=== PATIENT | female | born 1960 | race Caucasian/White ===

== ENCOUNTER 2018-01-02 09:23 | Inpatient (IN) | payer OTHER ==
[2018-01-02 10:58] VITALS: BMI 27.3
--- NOTE | 2018-01-02 14:47 | HP ---
COWS - Scale Resting Pulse: 1= [place] 81-100 Sweatin= Chills/Flushing Restless Observation: 1= Difficult to Sit Still Pupil Size: 1= Pupils >than Normal Bone or Joint Aches: 1= Mild Discomfort Runny Nose/ Eye Tearin= Nasal Congestion GI Upset > 30mins: 2= Nausea/Diarrhea Tremor Observation: 2= Slight Tremor Visible Yawning Observation: 1= 1-2x During Session Anxiety or Irritability: 2=Irritable/Anxious Goose Flesh Skin: 3=Piloerection COWS Score: 16 CIWA Score - CIWA Score Nausea/Vomitin Muscle Tremors: 3 Anxiety: 3 Agitation: 3 Paroxysmal Sweats: 3 Orientation: 0-Oriented Tacttile Disturbances: 1-Very Mild Itch/Numbness Auditory Disturbances: 0-None Visual Disturbances: 0-None Headache: 1-Very Mild CIWA-Ar Total Score: 17 Admission ROS BHS - HPI Chief Complaint: alcohol and loxycodone withdrawal sx Allergies/Adverse Reactions: Allergies Allergy/AdvReac Type Severity Reaction Status Date / Time No Known Allergies Allergy Verified 01/02/18 14:35 History of Present Illness: 57 yo f w h/o OUD and chronic alcoholism admitted for inaptient detoxification beause of opiodi and alcohol withdrawawl sx, was in detox 12 years ago recenlty relapsed 2 months ago. PMHX chronic back pain and osteoporosis, started oxycodoen 1 year ago and developed addiction, no si at this time depression, anxiety, insomnia thirsty Exam Limitations: No Limitations - Ebola screening Have you traveled outside of the country in the last 21 days: No Have you had contact with anyone from an Ebola affected area: No Have you been sick,other than usual withdrawal symptoms: No Do you have a fever: No - Review of Systems Constitutional: Chills, Diaphoresis, Malaise, Night Sweats, Weight Stable EENT: reports: Tearing, Nose Congestion Respiratory: reports: No Symptoms reported Cardiac: reports: No Symptoms Reported GI: reports: Diarrhea, Nausea, Poor Appetite, Poor Fluid Intake, Vomiting, Indigestion, Abdominal cramping : reports: No Symptoms Reported Integumentary: reports: Flushing, Sweating Neuro: reports: Headache, Numbness, Paresthesia, Tingling, Tremors, Weakness Endocrine: reports: Increased Thirst Hematology: reports: No Symptoms Reported Psychiatric: reports: Judgement Intact, Mood/Affect Appropiate, Orientated x3, Anxious, Depressed Other Systems: Reviewed and Negative Patient History - Patient Medical History Hx Anemia: No Hx Asthma: No Hx Chronic Obstructive Pulmonary Disease (COPD): No Hx Cancer: No Hx Cardiac Disorders: No Hx Congestive Heart Failure: No Hx Hypertension: No Hx Hypercholesterolemia: No Hx Pacemaker: No HX Cerebrovascular Accident: No Hx Seizures: No Hx Dementia: No Hx Diabetes: No Hx Gastrointestinal Disorders: No Hx Liver Disease: No Hx Genitourinary Disorders: No Hx Sexually Transmitted Disorders: No Hx Renal Disease (ESRD): No Hx Thyroid Disease: No Hx Human Immunodeficiency Virus (HIV): No Hx Hepatitis C: No Hx Depression: Yes Hx Suicide Attempt: No Hx Bipolar Disorder: No Hx Schizophrenia: No - Patient Surgical History Past Surgical History: No Anesthesia Reaction: No - PPD History Previous Implant?: Yes Documented Results: Positive w/o proof Implanted On Prior [facility] Admission?: No PPD to be Administered?: No - Reproductive History Patient is a Female of Child Bearing Age (11 -55 yrs old): No Patient : No - Smoking Cessation Smoking history: Current every day smoker Have you smoked in the past 12 months: Yes Aproximately how many cigarettes per day: 10 Hx Chewing Tobacco Use: No Initiated information on smoking cessation: Yes 'Breaking Loose' booklet given: 01/02/18 - Substance & Tx. History Hx Alcohol Use: Yes Hx Substance Use: Yes Substance Use Type: Alcohol, Opiates, Prescribed Hx Substance Use Treatment: Yes - Substances Abused Alcohol Route: Oral Frequency: Daily Amount used: 1 pint of tequilla and up Age of first use: 13 Date of Last Use: 01/02/18 Oxycontin Route: Oral Frequency: Daily Amount used: 30mg daily Age of first use: 56 Date of Last Use: 01/01/18 Family Disease History - Family Disease History Family Disease History: Heart Disease: Father (throat), Mother (stomach), CA: Father, Mother, Other: Grandparent (alcoholism), Father Admission Physical Exam BHS - Vital Signs Vital Signs: Vital Signs - 24 hr 01/02/18 10:47 Temperature 98.1 F Pulse Rate 83 Respiratory 18 Rate Blood Pressure 137/86 - Physical General Appearance: Yes: Nourished, Appropriately Dressed, Disheveled, Mild Distress, Tremorous, Irritable, Sweating, Anxious HEENTM: Yes: EOMI, Hearing grossly Normal, Normocephalic, Normal Voice, PAT, Pharynx Normal, Nasal Congestion, Rhinorrhea Respiratory: Yes: Within Normal Limits, Chest Non-Tender, Lungs Clear, Normal Breath Sounds, No Respiratory Distress, No Accessory Muscle Use Neck: Yes: Within Normal Limits, No masses,lesions,Nodules, Supple, Trachea in good position Breast: Yes: Breast Exam Deferred Cardiology: Yes: Within Normal Limits, Regular Rhythm, Regular Rate, S1, S2 Abdominal: Yes: Within Normal Limits, Normal Bowel Sounds, Non Tender, Flat, Soft Genitourinary: Yes: Within Normal Limits Back: Yes: Within Normal Limits, Normal Inspection Musculoskeletal: Yes: Gait Steady, Pelvis Stable, Back pain, Joint Stiffness, Muscle Pain Extremities: Yes: Normal Capillary Refill, Normal Range of Motion, Non-Tender, Tremors Neurological: Yes: account relationship manager II-XII NML intact, Fully Oriented, Alert, Motor Strength 5/5, Normal Response, Depressed Affect Integumentary: Yes: Normal Color, Warm, Diaphoresis, Moist, Other (poor skin turgor) Lymphatic: Yes: Within Normal Limits - Addiitonal Findings: withdrawal sx - Diagnostic (1) Alcohol dependence with uncomplicated withdrawal Current Visit: Yes Status: Acute (2) Opioid dependence with withdrawal Current Visit: Yes Status: Acute (3) Dehydration Current Visit: Yes Status: Acute (4) Depression Current Visit: Yes Status: Acute (5) Nicotine dependence Current Visit: Yes Status: Acute (6) Chronic back pain greater than 3 months duration Current Visit: Yes Status: Acute Cleared for Admission [facility] - Detox or Rehab [facility] Level of Care: Medically Managed Detox Regimen/Protocol: Methadone/Librium [facility] Breath Alcohol Content Breath Alcohol Content: 0.191 Urine Pregancy Test - Result Urine Test Results: Negative- NO Line Present Urine Drug Screen - Results Drug Screen Negative: No Urine Drug Screen Results: OXY-Oxycodone
[2018-01-02] MEDS ORDERED: P-EPHED 60MG/TRIPROLIDI 2.5MG TABLET PO PRN (14:59)
[2018-01-02] MEDS ORDERED: hydrOXYzine PAMOATE 50 MG CAPSULE (FP) PO PRN (14:59)
[2018-01-02] MEDS ORDERED: guaiFENesin/D-METHORPHAN HB 10 ML UNIT-DOSE CUPS PO PRN (14:59)
[2018-01-02] MEDS ORDERED: MAG HYDROX/AL HYDROX/SIMETH 30 ML UNIT-DOSE CUP PO PRN (14:59)
[2018-01-02] MEDS ORDERED: chlordiazePOXIDE HCL 25 MG CAPSULE PO PRN (14:59)
[2018-01-02] MEDS ORDERED: LOPERAMIDE HCL 2 MG CAPSULE PO PRN (14:59)
[2018-01-02] MEDS ORDERED: ACETAMINOPHEN 325 MG TABLET (FP) PO PRN (14:59)
[2018-01-02] MEDS ORDERED: MAGNESIUM HYDROX 2400MG/30ML ORAL SUSPENSION 30 ML CUP PO PRN (14:59)
[2018-01-02] MEDS ORDERED: NICOTINE POLACRILEX 2 MG GUM BUC PRN (14:59)
[2018-01-02] MEDS ORDERED: MENTHOL/PHENOL 1 EACH UD MM PRN (14:59)
[2018-01-02] MEDS ORDERED: MAGNESIUM CITRATE 300 ML BOTTLE PO PRN (14:59)
[2018-01-02] MEDS ORDERED: METHADONE HCL 10 MG TABLET (FOR DETOX USE ONLY) PO ONE ×2 (15:15→23:00)
[2018-01-02] MEDS ORDERED: chlordiazePOXIDE HCL 25 MG CAPSULE PO ONE (15:15)
[2018-01-02] MEDS ORDERED: METHADONE HCL 10 MG TABLET (FOR DETOX USE ONLY) ONE (17:27)
[2018-01-02] MEDS: chlordiazePOXIDE HCL 25 MG CAPSULE PO SCH ×2 (17:28→22:32)
[2018-01-02] MEDS: PANTOPRAZOLE 40 MG TABLET (FP) PO SCH (17:29)
[2018-01-02] MEDS: NICOTINE 14 MG/24 HOURS TOPICAL PATCH TD SCH (17:29)
[2018-01-02] MEDS: GABAPENTIN 100 MG CAPSULE (FP) PO SCH ×2 (17:29→22:32)
[2018-01-02] MEDS: DULoxetine HCL 20 MG CAPSULE.DR (FP) PO SCH (19:45)
[2018-01-02] MEDS: LIDOCAINE 5% TOPICAL PATCH TP SCH (19:46)
[2018-01-02 20:03] LABS: URINE APPEARANCE CLEAR; URINE BILIRUBIN NEGATIVE (NEGATIVE); URINE BLOOD 1+ (NEGATIVE); URINE COLOR COLORLESS; URINE GLUCOSE (UA) NEGATIVE (NEGATIVE); URINE KETONE NEGATIVE (NEGATIVE); URINE LEUK ESTERASE TRACE (NEGATIVE); URINE NITRITE NEGATIVE (NEGATIVE); URINE PROTEIN NEGATIVE (NEGATIVE); URINE UROBILINOGEN NEGATIVE mg/dL (0.2-1.0)
[2018-01-02 20:27] LABS: EPI CELLS RARE /HPF (FEW); URINE MUCUS RARE
[2018-01-02] MEDS ORDERED: ZOLPIDEM TARTRATE 10 MG TABLET (PARK CARE ONLY) PO PRN (22:00)
[2018-01-02] MEDS: AMITRIPTYLINE HCL 25 MG TABLET (FP) PO SCH (22:32)
[2018-01-02] MEDS: NAPROXEN 500 MG TABLET (FP) PO SCH (22:32)
[2018-01-02] MEDS: THIAMINE HCL 100 MG TABLET (FP) PO SCH (22:38)
[2018-01-02] MEDS: LIDOCAINE PATCH REMOVAL MC SCH (22:39)
[2018-01-03] MEDS: GABAPENTIN 100 MG CAPSULE (FP) PO SCH ×3 (06:08→22:38)
[2018-01-03] MEDS: chlordiazePOXIDE HCL 25 MG CAPSULE PO SCH ×4 (06:08→22:38)
[2018-01-03] MEDS ORDERED: METHADONE HCL 10 MG TABLET (FOR DETOX USE ONLY) PO SCH (10:00)
--- NOTE | 2018-01-03 10:10 | CONSULT ---
[facility] Psychiatric Consult - Data Date of interview: 01/03/18 Admission source: [facility] Identifying data: This is 57 years old female, single, mother of one, living with sister, on [place], with psychiatric hospitalization history admitted for inpatient detoxification beause of opiods and alcohol, Nicotine abuse. Substance Abuse History: Smoking Cessation. Smoking history: Current every day smoker. Have you smoked in the past 12 months: Yes. Aproximately how many cigarettes per day: 10. Hx Chewing Tobacco Use: No. Initiated information on smoking cessation: Yes. 'Breaking Loose' booklet given: 01/02/18. - Substance & Tx. History. Hx Alcohol Use: Yes. Hx Substance Use: Yes. Substance Use Type : Alcohol, Opiates, Prescribed. Hx Substance Use Treatment: Yes. - Substances Abused. Alcohol. Route: Oral. Frequency: Daily. Amount used: 1 pint of tequilla and up. Age of first use: 13. Date of Last Use: 01/02/18. Oxycontin. Route: Oral. Frequency: Daily. Amount used: 30mg daily. Age of first use: 56. Date of Last Use: 01/01/18 Medical History: LBP Psychiatric History: Patient reports history of depression, reports unclear psychiatric admission on about 12 years ago for safety, denies suicidal history , reports no medications taking prior to admission Physical/Sexual Abuse/Trauma History: Denies Additional Comment: Observation. Detox Unit Care Protocol Mental Status Exam - Mental Status Exam Alert and Oriented to: Person Cognitive Function: Fair Patient Appearance: Unkempt Mood: Sad Affect: Flat Patient Behavior: Sedated, Cooperative Voice Loudness: Mildly Soft/Quiet Thought Process: Circumstantial Thought Disorder: Being Controlled Hallucinations: Denies Suicidal Ideation: Denies Homicidal Ideation: Denies Insight/Judgement: Fair Sleep: Difficulty falling asleep Appetite: Fair Muscle strength/Tone: Mild Hypotonicity Gait/Station: Shuffling Additional Comments: Observation. Detox Unit Care Protocol Psychiatric Findings - Problem List ([place] 1, 2,3) (1) Drug-induced mood disorder Current Visit: Yes Status: Acute (2) Alcohol dependence with uncomplicated withdrawal Current Visit: Yes Status: Acute (3) Nicotine dependence Current Visit: Yes Status: Acute (4) Opioid dependence with withdrawal Current Visit: Yes Status: Acute - Initial Treatment Plan Initial Treatment Plan: Observation. Detox Unit Care Protocol
[2018-01-03] MEDS: NAPROXEN 500 MG TABLET (FP) PO SCH ×2 (10:21→22:38)
[2018-01-03] MEDS: PANTOPRAZOLE 40 MG TABLET (FP) PO SCH (10:21)
[2018-01-03] MEDS: PRENATAL VITAMINS W/ FOLIC ACID TABLET (FP) PO SCH (10:21)
[2018-01-03] MEDS: NICOTINE 14 MG/24 HOURS TOPICAL PATCH TD SCH (10:21)
[2018-01-03] MEDS: DULoxetine HCL 20 MG CAPSULE.DR (FP) PO SCH (10:21)
--- NOTE | 2018-01-03 10:21 | PN ---
S CIWA - CIWA Score Nausea/Vomitin Muscle Tremors: 3 Anxiety: 3 Agitation: 3 Paroxysmal Sweats: 3 Orientation: 0-Oriented Tacttile Disturbances: 0-None Auditory Disturbances: 0-None Visual Disturbances: 0-None Headache: 0-None Present CIWA-Ar Total Score: 15 BHS COWS - Scale Resting Pulse: 1= [place] 81-100 Sweatin= Chills/Flushing Restless Observation: 1= Difficult to Sit Still Pupil Size: 1= Pupils >than Normal Bone or Joint Aches: 1= Mild Discomfort Runny Nose/ Eye Tearin= Nasal Congestion GI Upset > 30mins: 1= Stomach Cramp Tremor Observation of Outstretched Hands: 1= Tremor [place], Not Seen Yawning Observation: 1= 1-2x During Session Anxiety or Irritability: 2=Irritable/Anxious Goose Flesh Skin: 3=Piloerection COWS Score: 14 S Progress Note (SOAP) Subjective: nausea, sweats, interrupted sleep, anxiety, tremors Objective: 01/03/18 10:21 Vital Signs - 24 hr 01/02/18 01/02/18 01/02/18 10:47 18:09 22:54 Temperature 98.1 F 98.2 F 98.2 F Pulse Rate 83 82 82 Respiratory 18 18 18 Rate Blood Pressure 137/86 128/77 128/77 01/03/18 01/03/18 01/03/18 00:01 00:30 00:31 Temperature Pulse Rate 88 80 Respiratory 18 18 18 Rate Blood Pressure 01/03/18 01/03/18 01:01 06:00 Temperature 97.9 F Pulse Rate 73 71 Respiratory 18 18 Rate Blood Pressure 124/57 Laboratory Tests 01/02/18 18:15 Urine Color Colorless Urine Appearance Clear Urine pH 5.0 Ur Specific [place] 1.004 Urine Protein Negative Urine Glucose (UA) Negative Urine Ketones Negative Urine Blood 1+ H Urine Nitrite Negative Urine Bilirubin Negative Urine Urobilinogen Negative Ur Leukocyte Esterase Trace Urine WBC (Auto) 5 Urine RBC (Auto) None Ur Epithelial Cells Rare Urine Mucus Rare labs still pending Assessment: 01/03/18 10:21 withdrawl sx cont detox, fluids, encourage ambulation
[2018-01-03] MEDS: LIDOCAINE 5% TOPICAL PATCH TP SCH (10:23)
[2018-01-03 10:44] LABS: HEMATOCRIT 42.8 % (32.4-45.2); HEMOGLOBIN 13.9 GM/dL (10.7-15.3); MCH 32.9 pg (25.7-33.7); MCHC 32.4 g/dl (32.0-36.0); MEAN CELL VOLUME 101.4 fl (80-96); MEAN PLT VOLUME 8.1 fl (7.5-11.1); PLATELET COUNT 233 K/MM3 (134-434); RBC 4.22 M/mm3 (3.60-5.2); RDW 15.5 % (11.6-15.6); WHITE BLOOD COUNT 9.9 K/mm3 (4.0-10.0)
[2018-01-03 11:04] LABS: ALBUMIN 3.8 g/dl (3.4-5.0); ANION GAP 12 (8-16); BLOOD UREA NITROGEN 11 mg/dL (7-18); CALCIUM 8.4 mg/dL (8.5-10.1); CHLORIDE 101 mmol/L (98-107); CO2 24 mmol/L (21-32); GLUCOSE,RANDOM 125 mg/dL (74-106); SODIUM 137 mmol/L (136-145)
[2018-01-03 11:08] LABS: ALK PHOS 114 U/L (45-117); BILIRUBIN,TOTAL 0.4 mg/dL (0.2-1.0); CREATININE 0.5 mg/dL (0.55-1.02); SGOT/AST 36 U/L (15-37); SGPT/ALT 43 U/L (12-78); TOT PROT 7.3 g/dl (6.4-8.2)
[2018-01-03 11:45] LABS: SICKLE CELL SCREEN NEGATIVE (NEGATIVE)
[2018-01-03] MEDS ORDERED: FLU VACCINE QUAD 60 MCG/0.5 ML (MDV 17-18) IM ONE (12:00)
--- NOTE | 2018-01-03 17:14 | EKG ---
Test Reason : Blood Pressure : / mmHG Vent. Rate : 079 BPM Atrial Rate : 079 BPM P-R Int : 148 ms QRS Dur : 082 ms QT Int : 396 ms P-R-T Axes : 059 050 063 degrees QTc Int : 454 ms NORMAL SINUS RHYTHM POSSIBLE LEFT ATRIAL ENLARGEMENT BORDERLINE ECG NO PREVIOUS ECGS AVAILABLE Confirmed by PAULA DUMONT, ANASTASIYA ([id number]) on 01/03/2018 5:13:51 PM Referred By: Confirmed By:ANASTASIYA MITCHELL MD
[2018-01-03] MEDS: AMITRIPTYLINE HCL 25 MG TABLET (FP) PO SCH (22:38)
[2018-01-03] MEDS: THIAMINE HCL 100 MG TABLET (FP) PO SCH (22:38)
[2018-01-03] MEDS: LIDOCAINE PATCH REMOVAL MC SCH (23:06)
[2018-01-04] MEDS: GABAPENTIN 100 MG CAPSULE (FP) PO SCH ×3 (07:02→22:21)
[2018-01-04] MEDS: chlordiazePOXIDE HCL 25 MG CAPSULE PO SCH ×2 (07:04→10:55)
[2018-01-04] MEDS ORDERED: ONDANSETRON *ODT* 4 MG TABLET SL PRN (10:09)
[2018-01-04] MEDS: METHADONE HCL 5 MG TABLET (FOR DETOX USE ONLY) PO SCH (10:55)
[2018-01-04] MEDS: LIDOCAINE 5% TOPICAL PATCH TP SCH (10:55)
[2018-01-04] MEDS: NAPROXEN 500 MG TABLET (FP) PO SCH ×2 (10:55→22:21)
[2018-01-04] MEDS: PRENATAL VITAMINS W/ FOLIC ACID TABLET (FP) PO SCH (10:55)
[2018-01-04] MEDS: NICOTINE 14 MG/24 HOURS TOPICAL PATCH TD SCH (10:55)
[2018-01-04] MEDS: PANTOPRAZOLE 40 MG TABLET (FP) PO SCH (10:55)
[2018-01-04] MEDS: DULoxetine HCL 20 MG CAPSULE.DR (FP) PO SCH (10:56)
--- NOTE | 2018-01-04 12:42 | PN ---
[facility] CIWA - CIWA Score Nausea/Vomitin-No Nausea/No Vomiting Muscle Tremors: 4-Moderate,w/Arms Extend Anxiety: 4-Mod. Anxious/Guarded Agitation: 4-Moderately Restless Paroxysmal Sweats: 3 Orientation: 0-Oriented Tacttile Disturbances: 0-None Auditory Disturbances: 0-None Visual Disturbances: 0-None Headache: 0-None Present CIWA-Ar Total Score: 15 BHS COWS - Scale Resting Pulse: 1= [place] 81-100 Sweatin=Flushed/Facial Moisture Restless Observation: 0= Sits Still Pupil Size: 0= Normal to Room Light Bone or Joint Aches: 2= Severe Diffuse Aches Runny Nose/ Eye Tearin= Nasal Congestion GI Upset > 30mins: 2= Nausea/Diarrhea Tremor Observation of Outstretched Hands: 2= Slight Tremor Visible Yawning Observation: 1= 1-2x During Session Anxiety or Irritability: 1=Feels Anxious/Irritable Goose Flesh Skin: 3=Piloerection COWS Score: 15 [facility] Progress Note (SOAP) Subjective: agitation sweats shakes interrupted sleep body aches restless Objective: 01/04/18 12:41 Vital Signs Temperature 97.2 F L 01/04/18 10:00 Pulse Rate 98 H 01/04/18 10:00 Respiratory Rate 20 01/04/18 10:00 Blood Pressure 137/83 01/04/18 10:00 O2 Sat by Pulse Oximetry (%) Laboratory Tests 01/02/18 01/03/18 01/03/18 18:15 06:00 06:00 WBC 9.9 RBC 4.22 Hgb 13.9 Hct 42.8 MCV 101.4 H MCH 32.9 MCHC 32.4 RDW 15.5 Plt Count 233 MPV 8.1 Sickle Cell Screen Negative Sodium 137 Potassium 4.0 Chloride 101 Carbon Dioxide 24 Anion Gap 12 BUN 11 Creatinine 0.5 L Creat Clearance w eGFR > 60 Random Glucose 125 H Calcium 8.4 L Total Bilirubin 0.4 AST 36 ALT 43 Alkaline Phosphatase 114 Total Protein 7.3 Albumin 3.8 Urine Color Colorless Urine Appearance Clear Urine pH 5.0 Ur Specific [place] 1.004 Urine Protein Negative Urine Glucose (UA) Negative Urine Ketones Negative Urine Blood 1+ H Urine Nitrite Negative Urine Bilirubin Negative Urine Urobilinogen Negative Ur Leukocyte Esterase Trace Urine WBC (Auto) 5 Urine RBC (Auto) None Ur Epithelial Cells Rare Urine Mucus Rare RPR Titer 01/03/18 06:00 WBC RBC Hgb Hct MCV MCH MCHC RDW Plt Count MPV Sickle Cell Screen Sodium Potassium Chloride Carbon Dioxide Anion Gap BUN Creatinine Creat Clearance w eGFR Random Glucose Calcium Total Bilirubin AST ALT Alkaline Phosphatase Total Protein Albumin Urine Color Urine Appearance Urine pH Ur Specific [place] Urine Protein Urine Glucose (UA) Urine Ketones Urine Blood Urine Nitrite Urine Bilirubin Urine Urobilinogen Ur Leukocyte Esterase Urine WBC (Auto) Urine RBC (Auto) Ur Epithelial Cells Urine Mucus RPR Titer Nonreactive aaox3 ambulating no acute distress Assessment: 01/04/18 12:41 withdrawal sx Plan: continue detox increase fluids
[2018-01-04] MEDS: chlordiazePOXIDE 5 MG CAPSULE PO SCH ×2 (18:33→22:21)
[2018-01-04] MEDS: THIAMINE HCL 100 MG TABLET (FP) PO SCH (22:21)
[2018-01-04] MEDS: AMITRIPTYLINE HCL 25 MG TABLET (FP) PO SCH (22:21)
[2018-01-04] MEDS: LIDOCAINE PATCH REMOVAL MC SCH (22:46)
[2018-01-05] MEDS: chlordiazePOXIDE 5 MG CAPSULE PO SCH ×2 (06:18→11:41)
[2018-01-05] MEDS: GABAPENTIN 100 MG CAPSULE (FP) PO SCH (06:18)
--- NOTE | 2018-01-05 09:15 | PN ---
S Progress Note Note: pt states she is going to [place] to be with her daughter and will continue treatment. Pt signed out AMA.
--- NOTE | 2018-01-05 09:16 | DS ---
[facility] Detox Discharge Summary Admission Date: 01/02/18 - History Present History: Alcohol Dependence, Opioid Dependence - Physical Exam Results Vital Signs: Vital Signs Temperature 97.5 F L 01/05/18 07:06 Pulse Rate 81 01/05/18 07:06 Respiratory Rate 18 01/05/18 07:06 Blood Pressure 112/67 01/05/18 07:06 O2 Sat by Pulse Oximetry (%) - Treatment Hospital Course: Detox Protocol Followed, Responded well, Discharged Condition Good - Diagnosis (1) Alcohol dependence with uncomplicated withdrawal Current Visit: Yes Status: Chronic (2) Chronic back pain greater than 3 months duration Current Visit: Yes Status: Acute (3) Dehydration Current Visit: Yes Status: Acute (4) Depression Current Visit: Yes Status: Acute (5) Drug-induced mood disorder Current Visit: Yes Status: Acute (6) Nicotine dependence Current Visit: Yes Status: Chronic Qualifiers: Nicotine product type: cigarettes Substance use status: uncomplicated Qualified Code(s): F17.210 - Nicotine dependence, cigarettes, uncomplicated (7) Opioid dependence with withdrawal Current Visit: Yes Status: Chronic - AMA Did Patient Leave Against Medical Advice: Yes
[2018-01-05] MEDS: NAPROXEN 500 MG TABLET (FP) PO SCH (10:27)
[2018-01-05] MEDS: PRENATAL VITAMINS W/ FOLIC ACID TABLET (FP) PO SCH (10:27)
[2018-01-05] MEDS: PANTOPRAZOLE 40 MG TABLET (FP) PO SCH (10:27)
[2018-01-05 11:39] VITALS: BP 102/65; PULSE 95; TEMP 97.7
[2018-01-05] MEDS: NICOTINE 14 MG/24 HOURS TOPICAL PATCH TD SCH (11:41)
[2018-01-05] MEDS: LIDOCAINE 5% TOPICAL PATCH TP SCH (11:41)
[2018-01-05] MEDS: METHADONE HCL 5 MG TABLET (FOR DETOX USE ONLY) PO SCH (11:41)
[2018-01-05] MEDS: DULoxetine HCL 20 MG CAPSULE.DR (FP) PO SCH (11:41)
[2018-01-05] MEDS ORDERED: chlordiazePOXIDE HCL 10 MG CAPSULE PO SCH (17:00)
[2018-01-06] MEDS ORDERED: METHADONE HCL 10 MG TABLET (FOR DETOX USE ONLY) PO SCH (10:00)
[2018-01-07] MEDS ORDERED: METHADONE HCL 5 MG TABLET (FOR DETOX USE ONLY) PO SCH (06:00)
== END 2018-01-05 10:34 | disposition left against medical advice (07) | DRG 770 ==
LOC: YASAS 09:23 → Y6N 13:05
PROVIDERS: ADMIT Internal Medicine; ATTEND Internal Medicine
PROC: HZ2ZZZZ Detoxification Services for Substance Abuse Treatment (ICD-10-PCS; principal; 2018-01-02)
DX: F11.23 Opioid dependence with withdrawal (principal); F10.230 Alcohol dependence with withdrawal, uncomplicated; F17.210 Nicotine dependence, cigarettes, uncomplicated; F19.24 Other psychoactive substance dependence with psychoactive substance-induced mood disorder; F32.9 Major depressive disorder, single episode, unspecified; E86.0 Dehydration; M54.5 Low back pain; G89.29 Other chronic pain
CPT/HCPCS: 36415; 80053; 81003; 81015; 85027; 85660; 86593; 90688; 93005; 93010; G0008